=== PATIENT | male | born 1960 | race African-American/Black ===

== ENCOUNTER 2017-04-10 10:52 | Day surgery (SDC) | payer OTHER ==
[~2017-04-10] VITALS: Ht 170.2 cm; Wt 90.7 kg
[~2017-04-10 10:52] MED LIST: MIRALAX17 GM PO; MOTRIN800 MG PO; OMEGA-31000 M1 PO; TURMERIC 500 M1 EACH PO; VITAMIN D32000 UNI1 PO; VITAMIN D35000 UNIT PO; ZANAFLEX2 MG PO
== END 2017-04-10 13:35 | disposition home or self-care (01) ==
LOC: PAIN 10:52 → SDC 11:45 → PAIN 11:45
DX: M47.816 Spondylosis without myelopathy or radiculopathy, lumbar region (principal); M54.5 Low back pain; G89.29 Other chronic pain; M79.1 Myalgia; Z87.891 Personal history of nicotine dependence; E66.3 Overweight; Z68.31 Body mass index [BMI] 31.0-31.9, adult
CPT/HCPCS: J1030; J2250; J3010; S0020